=== PATIENT | male | born 1945 | race Caucasian/White ===

== ENCOUNTER 2016-10-24 08:50 | Day surgery (SDC) | payer MEDICARE ==
[~2016-10-24] VITALS: Ht 171.4 cm; Wt 181.9 kg
[~2016-10-24 08:50] MED LIST: ACET-837 PO; ASCO-294 PO; ASPI-973 PO; CARV25TA2 PO; CHOL100043 PO; DIPH50C PO; FURO80TA83 PO; LOSA50TA3 PO; Lactated Ringer's 1,000 ML IV ONE; NAPR220C11 PO; POTA10TA14 PO; SOMA350 PO; TRAM-14 PO
[2016-10-24] MEDS ORDERED: Propofol 10,000 mCg/mL 20 mL Inj ONE (08:51)
[2016-10-24] MEDS ORDERED: Ketamine 10 mg/mL 20 mL Inj ONE (08:51)
[2016-10-24] MEDS ORDERED: Glycopyrrolate 0.2 MG/ML 1mL Inj ONE (08:51)
[2016-10-24 10:02] VITALS: BP 156/88; PULSE 70; RESP 16; O2SAT 92
[2016-10-24] MEDS ORDERED: MULT1CAP33 PO (10:07)
[2016-10-24] MEDS ORDERED: GABA-502 PO (10:07)
--- NOTE | 2016-10-24 10:36 | PCM.HPANE ---
Patient Data Date of Service: Oct 24, 2016 Surgeon Admitting Provider: Attending Provider:Jimmy Barboza MD Primary Care Physician:Chris Dobson MD Other Provider:Tru Daugherty Anesthesia Reason for Visit Abnormal Finding On Ct Scan Ht/WT & BMI Height (Feet): 5 Height (Inches): 7.5 Weight (Kilograms): 181.89 Body Mass Index 62.00 Allergies Coded Allergies: cephalexin (Verified Allergy, Intermediate, 10/24/16) Past Anesthesia History Anesthesia History: Positive for:: Abnormal Airway (DON), Denies:: Anesthesia Reactions, Difficult Intubation, Fam Anesthesia Reaction , Fam Malignant Hypertherm, Malignant Hyperthermia Diabetes History Hx Diabetes?: Yes Current Bedside Blood Glucose: 149 MRSA MRSA: No Medications Blood Thinner: Aspirin (been off x6mo) Reported Medications Gabapentin 300 Mg Capsule1,200 Mg PO HS Ref 0 10/24/16 Multivitamin (Multivitamins)1 Each Capsule1 Each PO DAILY 10/24/16 Cholecalciferol (Vitamin D3) (Vitamin D)1,000 Unit Tablet1,000 Unit PO DAILY #1 BOTTLE Ref 0 05/03/15 Tramadol (Ultram)50 Mg Kfrbbk73 Mg PO HS Ref 0 05/03/15 Acetaminophen/Codeine 300-60mg (Tylenol/Codeine #4)1 Each Tablet1 Tablet PO Q4H PRN Pain Ref 0 05/03/15 Furosemide (Lasix)80 Mg Ramhth20 Mg PO DAILY 30 Days Ref 0 05/03/15 Potassium Chloride ER (Klor-Con M10)10 Meq Szfzna07 Meq PO DAILY Ref 0 05/03/15 Losartan Potassium (Cozaar)50 Mg Rvzvii02 Mg PO BID 05/03/15 Carisoprodol 350 Mg Lpxijm195 Mg PO QID PRN hs 05/03/15 Diphenhydramine Hcl (Benadryl)50 Mg Ikurbcq18 Mg PO Q6H 05/03/15 Naproxen Sodium (Aleve)220 Mg Lcgiksd917 Mg PO DAILY PRN Headache 05/03/15 Discontinued Reported Medications Ascorbate Calcium (Vitamin C)500 Mg Xtnojq540 Mg PO 05/03/15 Carvedilol 25 Mg Rxhnwl96 Mg PO BID Ref 0 05/03/15 Aspirin 81 Mg Dctpiz06 Mg PO DAILY Ref 0 05/03/15 History History of ENT Problems?: Yes HEENT History: Positive for:: Abnormal Airway (DON) Denies:: Difficult Intubation Hearing Problem Denture Type: None Teeth Condition: Broken Teeth Tooth Decay Missing Teeth Hx of Heart Problems?: Yes Cardiovascular History: Positive for:: Congestive Heart Failure Hypertension Denies:: Atrial Fibrillation (Hx of sinus arrhythmia and PVC's) Chest Pain Coronary Artery Disease Other Cardiac History: CHF Hx of Respiratory Problem?: Yes Respiratory History: Positive for:: Asthma (no albuterol due to expense) Cough Hx Neurologic Problems?: No Neurological History: Denies:: CVA Seizures TIA Hx of GI Problems?: Yes Gastrointestinal History: Denies:: Gastroesphageal Reflux Hx of Problems?: No HX of Peritoneal Dialysis: No Hx Musculoskeletal Problems?: Yes Musculoskeletal History: Positive for:: Joint Replacement (Bilateral knee scopes) Hx of Psycho/Social Problems?: No Hx Surgeries?: Yes (Sabina, bilateral knees) Hx Any Other Health Problems?: Yes Hx Diabetes: YesBedside Blood Glucose: 149 Hx Alcohol Use: NoHx Substance Use: No Smoking Status: Former Smoker (remote 35yrs ago) Never Smoker Stop/Bang Treated for Sleep Apnea?: Yes Do You Have a CPAP Machine?: Yes Risk Assessment Category Category 1A: Patient has history of documented sleep apnea, and HAS NOT received any narcotic, sedative or anesthesia administration during this stay. Category 1B: Patient has history of documented sleep apnea, and HAS received any narcotic , sedative or anesthesia administration during this stay Category 2: Patient has SUSPECTED Obstructive Sleep Apnea, and HAS received any narcotic , sedative or anesthesia administration during this stay. Category 3: Patient has SUSPECTED Obstructive Sleep Apnea and HAS NOT received narcotic, sedative or anesthesia administration during this stay. Category 4: Outpatient in Procedural Areas with known sleep apnea or who screen positive for High Risk via the STOP/BANG questionnaire. Exam Exam Vital Signs Vital Signs Date Time Temp Pulse Resp B/P Pulse Ox O2 Delivery O2 Flow Rate FiO2 10/24/16 10:02 70 16 156/88 92 Room Air General Appearance: Alert, Oriented X3, Cooperative, No Acute Distress HEENT/AIRWAY: MP 3, Neck Movement (from, full baltazar), Mouth Opening (3), Other (tmd<3) Lungs: Diminished Heart: Exam Unremarkable, Regular Rate/Rhythm, Normal S1, Normal S2, No Murmurs /Rubs/Gallops Meds/Labs/Diagnostics Bedside Blood Glucose: 149 Plan Impression Patient chart reviewed, patient interviewed and anesthestic plan with risks, benefits, and alternatives discussed, and informed consent obtained. NPO per Anesth. Guidelines: Yes ASA Physical Status: ASA3 Severe Disease Anesthetic Plan: TIVA Bene/Risks/Altern/Consents: Yes HP Complete Prior to Induction: Yes Froilan Higginbotham MD Oct 24, 2016 10:36
[2016-10-24 11:11] VITALS: BP 150/72; PULSE 79; RESP 14; O2SAT 91
[2016-10-24 11:19] VITALS: BP 151/73; PULSE 80; RESP 16; O2SAT 98
[2016-10-24 11:25] VITALS: BP 120/68; PULSE 74; RESP 16; O2SAT 98
--- NOTE | 2016-10-24 13:24 | ENDO ---
[address] [address] ENDOSCOPY PROCEDURE PATIENT: JOCY RUSSELL : 1945 MR#: [id number] ADMIT: 10/24/2016 JOB ID: [id number] PROCEDURE: Colonoscopy. INDICATION: Abnormal CT scan which suggested the possibility of inflammation versus mass lesion in the cecal area. ANESTHESIA: Please see Dr. Froilan Higginbotham's anesthesia report for details regarding ASA classification, Mallampati score, and medications. INSTRUMENT USED: CF H 180 AL PREPARATION QUALITY: Fair. PROCEDURE DETAILS: After informed consent was obtained the patient was brought into the GI suite, where he was placed on oxygen via nasal cannula and monitored with continuous pulse oximeter, telemetry, and blood pressure monitoring. A time-out was performed, then he was placed in the left lateral decubitus position and medications were administered for sedation. Digital rectal exam was performed which was unremarkable. Colonoscope was then inserted into the rectum and advanced to the proximal ascending colon. Beyond this point I was unable to advance the scope as there was luminal narrowing. Despite application of a significant amount of air, as well as fluid with irrigation, the lumen would not distend. The mucosa at this site did not appear abnormal. With gentle pressure we attempted to advance the scope beyond this area, however were unsuccessful. At this point, Anahy ink was injected at this site and the colonoscope was then withdrawn as the mucosa and lumen were examined. In the rectum, retroflexion was performed. Following retroflexion, the remaining air in the rectum was suctioned and the procedure was completed. FINDINGS: Luminal narrowing in the ascending colon. RECOMMENDATIONS: 1. Will obtain CT of the Chest, abdomen and pelvis. 2. Surgical consultation. COMPLICATIONS: None. ESTIMATED BLOOD LOSS: Less than 5 mL. CC: Dr. Chris Katz, Dr Dahlia THOMPSON
--- NOTE | 2016-10-25 12:04 | PCM.ANEP1 ---
Post Anesthesia PACU Phase 1 Assessment Date of Service: Oct 24, 2016 Anesthetic Administered: TIVA Level of Alertness: Awake, talking ALEJANDRA's with Equal Strength: Yes Pain: No Pain Scale Score: 0 Nausea or Vomiting: No CV Function & Hydration Stable: Yes Airway Device: none Oxygen Delivery: Nasal Cannula Lungs: Diminished PACU Phase 2 Assessment Complications: No Follow up Care: N/A Patient Instructions Provided: N/A Froilan Higginbotham MD Oct 25, 2016 12:04
== END 2016-10-24 23:59 | disposition home or self-care (01) ==
LOC: END 08:50
PROVIDERS: ATTEND Internal Medicine Gastroenterology
DX: K63.89 Other specified diseases of intestine (principal); R93.8 Abnormal findings on diagnostic imaging of other specified body structures; E11.9 Type 2 diabetes mellitus without complications; G47.33 Obstructive sleep apnea (adult) (pediatric); I50.9 Heart failure, unspecified; I10 Essential (primary) hypertension; J45.909 Unspecified asthma, uncomplicated; Z79.899 Other long term (current) drug therapy; Z88.1 Allergy status to other antibiotic agents; Z87.891 Personal history of nicotine dependence
CPT/HCPCS: 45381; J2250; J7120